=== PATIENT | male | born 1945 | race Caucasian/White ===

== ENCOUNTER 2021-06-11 13:23 | Emergency (ER) | payer OTHER ==
[~2021-06-11] VITALS: Ht 170.2 cm; Wt 83.9 kg
[2021-06-11 13:48] LABS: BASOPHILS % (AUTO) 0.7 % (0.0-5.0); EOSINOPHILS % (AUTO) 0.9 % (0.0-8.0); HEMATOCRIT 44.9 % (42-54); MEAN CORPUSCULAR HEMOGLOBIN 31.9 pg (27.0-33.0); MEAN CORPUSCULAR HGB CONC 34.3 g/dL (32.0-36.0); MONOCYTES % (AUTO) 7.7 % (3.0-13.0); NEUTROPHILS % (AUTO) 74.5 % (40.0-77.0); PLATELET COUNT (AUTO) 230 K/uL (130-400); RED BLOOD CELL COUNT(AUTO) 4.83 MIL/uL (4.50-6.20); RED CELL DISTRIBUTION WIDTH 13.3 % (11.0-15.5); WHITE BLOOD COUNT (AUTO) 9.2 K/uL (4.8-10.8)
[2021-06-11 13:51] LABS: APPEARANCE,URINE Clear (CLEAR); BILIRUBIN,URINE Negative (NEGATIVE); COLOR,URINE Yellow (YELLOW); GLUCOSE, URINE (UA) Negative (NEGATIVE); KETONES,URINE Trace mg/dL (NEGATIVE); LEUKOCYTE ESTERASE ,URINE Small (NEGATIVE); NITRATE,URINE Negative (NEGATIVE); OCCULT BLOOD,URINE Negative (NEGATIVE); PROTEIN,URINE Negative (NEGATIVE)
[2021-06-11 14:07] LABS: ALBUMIN 3.5 g/dL (3.5-5.0); BILIRUBIN,TOTAL 0.6 mg/dL (0.2-1.0); CREATININE 1.4 mg/dL (0.5-1.5); POTASSIUM 3.6 mmol/L (3.5-5.1); TOTAL PROTEIN, SERUM 7.3 g/dL (6.0-8.3)
[2021-06-11 14:15] LABS: BACTERIA,URINE Rare /HPF (None Seen); RBC,URINE 0-1 /HPF (0-1); SQUAMOUS EPITHELIAL CELL,UR Rare /HPF (0-2); WBC,URINE 0-1 /HPF (0-1)
[2021-06-11] MEDS ORDERED: CEFTRIAXONE 1G VIAL IVP ONE (15:00)
[2021-06-11] MEDS ORDERED: 0.9%NACL 1000ML 1,000 ML IV ONE (15:00)
[2021-06-11] MEDS ORDERED: BENZ-39 PO (17:12)
[2021-06-11] MEDS ORDERED: ACET-66 PO (17:12)
[2021-06-11] MEDS ORDERED: AMOX-429 PO (17:12)
[2021-06-11 18:00] VITALS: BP 147/72
== END 2021-06-11 18:48 | disposition home or self-care (01) ==
LOC: EDH 13:23
DX: U07.1 COVID-19 (principal); N39.0 Urinary tract infection, site not specified; I11.9 Hypertensive heart disease without heart failure; Z95.810 Presence of automatic (implantable) cardiac defibrillator
CPT/HCPCS: 36415; 70450; 71045; 80053; 81001; 84484; 85025; 87635; 96374; 99285; C9803; J0696; J7030